=== PATIENT | male | born 1970 | race Hispanic/Latino ===

== ENCOUNTER 2024-03-19 07:53 | Day surgery (SDC) | payer OTHER ==
[2024-03-16 13:54] VITALS: BP 122/73; PULSE 82; RESP 18; TEMP 97.9
[~2024-03-19] VITALS: Ht 170.2 cm; Wt 84.6 kg
[2024-03-19] VITALS (16 sets, daily range): BP systolic 108–143; BP diastolic 63–84; PULSE 63–77; RESP 15–18; TEMP 97.2–97.8
[~2024-03-19 07:53] MED LIST: CETI10TA57 PO; CHOL200074 PO; DICY10CA2 PO; EMPA25TA PO; FAMO40TA7 PO; FLUO60TA PO; PANT40TA54 PO; ROSU40TA88 PO
[2024-03-19] MEDS ORDERED: LIDOCAINE PF 100MG/5ML (2%) SYRINGE 5ML ONE (08:20)
[2024-03-19] MEDS ORDERED: proPOFol 10 MG/ML 20ML VIAL IV ONE (08:21)
[2024-03-19] MEDS ORDERED: FENTanyl CITRate PF 50 MCG/1 ML 2ML VIAL ONE (08:21)
[2024-03-19] MEDS ORDERED: MIDAZOLAM HCL 1 MG/ML 2ML VIAL ONE (08:21)
[2024-03-19] MEDS ORDERED: rocuRONium bROMide 10MG/1ML 5ML VL ONE (08:21)
[2024-03-19] MEDS: 0.9%NACL 1000ML 1,000 ML IV ONE (08:31)
[2024-03-19] MEDS: ceFAZolin SODIUM 2 GM VIAL ONE (08:31)
[2024-03-19] MEDS ORDERED: phenylEPHRINE HCL 10 MG/ML 1ML VIAL IV ONE (09:53)
[2024-03-19] MEDS ORDERED: ketOROlac 30MG VIAL (30MG/ML) ONE (09:56)
[2024-03-19] MEDS ORDERED: ondanSETRON 4MG INJ ONE (09:56)
[2024-03-19] MEDS ORDERED: dexaMETHasone SOD PHOSPHATE 10MG/ML 1ML VIAL ONE (09:56)
[2024-03-19] MEDS ORDERED: ketaMINE 50MG/ML SYRINGE 50 MG/ML DISP.SYRIN ONE (09:59)
[2024-03-19] MEDS ORDERED: ePHEDrine SULFate 50 MG/ML AMPULE ONE (10:10)
[2024-03-19] MEDS ORDERED: NEOSTIGMINE METHYLSULFATE 1MG/ML IV ONE (10:22)
[2024-03-19] MEDS ORDERED: GLYCOPYRROLATE 0.2 MG/ML 5 ML VIAL ONE (10:22)
[2024-03-19] MEDS: BUPIvacaine/PF 0.5% 30ML VIAL ONE (10:24)
[2024-03-19] MEDS ORDERED: CYCL10TA16 PO (10:50)
[2024-03-19] MEDS ORDERED: HYDR-4060 PO (10:50)
--- NOTE | 2024-03-19 11:45 | NUR ---
DRESSING: DRESSING TO RIGHT LATERAL UPPER LEG DRY/INTACT WITH NO ACTIVE BLEEDING PRESENT. NO REDNESS/SWELING NOTED TO SURROUNDING AREA RT LEG.
--- NOTE | 2024-03-19 15:55 | OP ---
Operative Note: DATE OF PROCEDURE: 03/19/24 SURGEON: PAT ALBERTO MD STEWARD RACETRACK: Isai Maldonado ANESTHESIA: General ANESTHESIOLOGIST/HEALTH SAFETY AND ENVIRONMENT MANAGER: Bran Vallejo CRNA PREOPERATIVE DIAGNOSIS: Right hip trochanteric bursitis with gluteus minimus musculotendinous tear POSTOPERATIVE DIAGNOSIS: Right hip trochanteric bursitis with gluteus minimus musculotendinous tear PROCEDURE: Right hip trochanteric bursectomy with attempted repair gluteus minimus musculotendinous tear. ESTIMATED BLOOD LOSS: 20 cc INDICATIONS: 53-year-old male with right hip pain in the trochanteric region. He had been undergoing conservative management with steroid injections and physical therapy. He had an MRI obtained that showed he did have a gluteus minimus tendon tear at the musculotendinous junction. We discussed at that point that generally musculotendinous toes are not amenable to repair due to therapy nothing to grab with a suture on the muscular side that does not shredded and retract. Patient continued with pain and wanted to try open bursectomy with possible repair. After discussion of the risks, benefits, and alternatives, the patient voluntarily agreed to undergo the aforementioned procedure. DESCRIPTION OF PROCEDURE: Patient was properly identified in the preoperative holding area. Surgical site marking was verified and surgery consent reviewed. The patient was then taken to the operating room and placed in supine position on the OR table. After induction of general anesthesia, preoperative antibiotics were given, patient was placed in a lateral decubitus with the right side up, and all bony prominences were well-padded. The right lower extremity was then prepped and draped in usual sterile fashion. Surgical time out was done verifying correct surgery, side, site, and location to be performed. We then began the procedure by making an proximally 10 cm long incision centered over the greater trochanter. Here we came down sharply level of the fascia. Hemostasis performed using Bovie electrocautery. We then incised the IT band in line with the skin incision in split the tissue here. We were able to abduct the hip and place her Charnley retractor deep to the IT band. We then visualized the trochanteric bursa and went ahead and resected the irritated tissue performing our bursectomy. This was completed using rongeur and the Bovie. We then began to explore the gluteus muscles then could identify the deeper step off from the gluteus minimus musculotendinous tear. We split through the fibers of the medius without causing further injury to the musculotendinous junction of gluteus medius. We then attempted using our 0 Vicryl suture in a locking type fashion to repair the gluteus medius muscle fibers back to the tendon. Some of the muscle fibers were noted to tear not allow for reapproximation. There appeared to be some of the muscular tissue that remained approximated after placing multiple sutures in this type pattern. We then thoroughly irrigated out the wound with normal saline and began repairing the fascia of the gluteus medius using an 0 Vicryl. 0 Vicryl was also used to repair the IT band. 2-0 Vicryl was used in the subcutaneous tissues. Running subcuticular 3-0 Monocryl was used for the skin with Dermabond applied over this. The patient was then returned to supine position awakened from anesthesia and taken to the recovery room in stable condition. PAT ALBERTO MD Mar 19, 2024 15:55
== END 2024-03-19 12:45 | disposition home or self-care (01) ==
LOC: DAH 07:53
PROVIDERS: ATTEND Student in an Organized Health Care Education/Training Program
DX: S76.011A Strain of muscle, fascia and tendon of right hip, initial encounter (principal); M70.61 Trochanteric bursitis, right hip; M76.31 Iliotibial band syndrome, right leg; M25.551 Pain in right hip; E11.9 Type 2 diabetes mellitus without complications; K21.9 Gastro-esophageal reflux disease without esophagitis; E78.5 Hyperlipidemia, unspecified; E66.9 Obesity, unspecified; F10.90 Alcohol use, unspecified, uncomplicated; Z83.3 Family history of diabetes mellitus; Z68.28 Body mass index [BMI] 28.0-28.9, adult; Z79.899 Other long term (current) drug therapy; Z98.890 Other specified postprocedural states; X58.XXXA Exposure to other specified factors, initial encounter; Y93.89 Activity, other specified; Y92.89 Other specified places as the place of occurrence of the external cause; Y99.8 Other external cause status
CPT/HCPCS: 27062; 97161; 82948 ×2; 97116; 27299; J1885; A4663; J3010; J1100; J7030; J3490 ×4; J2003; J2250; J2704; J2405; J2710; J0665; J2371; J0690; A4930; A6255; A4215; A4213; A4222; A4221; A4216; A4223 ×2